=== PATIENT | female | born 1980 | race Two or more races ===

== ENCOUNTER 2018-01-13 22:37 | Inpatient (IN) | payer OTHER ==
[~2018-01-13] VITALS: Ht 165.1 cm; Wt 69.4 kg
--- NOTE | 2018-01-13 22:40 | NUR ---
TO BED 6 A 37 YO FEMALE BIBRA AND PER PATIENT, "TOOK 20 TABS OF TYLENOL 500MG AND 8 TABS OF XANAX 2MG 30MINUTES AGO." SHE THEN SAID, "IM IN TOO MUCH STRESS. AND I WANNA KILL MYSELF." PATIENT IS LETHARGIC AT THIS TIME, AWAKEN BY NAME WITH TACTILE STIMULI, FOLLOWS SOME COMMANDS. PLACE PATIENT ON CARDIAC AND VS MONITORING. MAINTAINED PATENT AIRWAY. SAFETY MEASURES IN PLACE. SUICIDE PRECAUTIONS IN PLACE. WILL CLOSELY MONITOR PATIENT.
[2018-01-13] MEDS ORDERED: IV NS 0.9% 1,000 ML BAG IV ONE (23:00)
--- NOTE | 2018-01-13 23:09 | NUR ---
urine collected via straight catheter, called lab for pickle pumper.
[2018-01-13 23:15] LABS: BASOPHILS # (AUTO) 0.1 /CMM (0.0-0.2); BASOPHILS % (AUTO) 0.9 % (0.0-2.0); EOSINOPHILS % (AUTO) 0.4 % (0.0-6.0); HEMATOCRIT 35 % (33-45); HEMOGLOBIN 11.9 g/dL (11.5-14.8); LYMPHOCYTES # (AUTO) 3.7 /CMM (0.8-4.8); LYMPHOCYTES % (AUTO) 43.1 % (20.0-44.0); MEAN CORPUSCULAR HEMOGLOBIN 32 PG (26.0-33.0); MEAN CORPUSCULAR HGB CONC 34 g/dl (31.0-36.0); MEAN CORPUSCULAR VOLUME 94 fL (82-100); MONOCYTES # (AUTO) 0.7 /CMM (0.1-1.30); MONOCYTES % (AUTO) 8.7 % (2.0-12.0); NEUTROPHILS % (AUTO) 46.9 % (43.0-81.0); PLATELET COUNT (AUTO) 363 /CMM (150-450); RDW COEFFICIENT OF VARIATION 14.9 (11.5-15.0); RED BLOOD CELL COUNT(AUTO) 3.68 MIL/uL (4.0-5.2); WHITE BLOOD COUNT (AUTO) 8.5 K/uL (4.3-11.0)
[2018-01-13 23:26] LABS: CALCIUM, SERUM 8.3 mg/dL (8.5-10.1); CARBON DIOXIDE 22 mmol/L (21-32); CHLORIDE 104 mmol/L (98-107); CREATININE 0.6 mg/dL (0.6-1.3); GLUCOSE 111 mg/dL (74-106); POTASSIUM 3.5 mmol/L (3.5-5.1); SODIUM SERUM 138 mmol/L (136-145); UREA NITROGEN, BLOOD 8 mg/dL (7-18)
[2018-01-13 23:33] LABS: ALANINE AMINOTRANSFERASE 33 U/L (12-78); ALBUMIN 3.6 g/dL (3.4-5.0); ALCOHOL, BLOOD < 3 mg/dL (0-0); ALKALINE PHOSPHATASE 54 U/L (46-116); ASPARTATE AMINOTRANSFERASE 13 U/L (15-37); BILIRUBIN,DIRECT 0.1 mg/dL (0.0-0.2); BILIRUBIN,TOTAL 0.3 mg/dL (0.2-1.0); TOTAL PROTEIN, SERUM 7.5 g/dL (6.4-8.2)
[2018-01-13 23:36] LABS: SALICYLATE 1.7 mg/dL (2.8-20.0)
[2018-01-13 23:38] LABS: APPEARANCE,URINE CLEAR (CLEAR); BILIRUBIN,URINE NEGATIVE (NEGATIVE); BLOOD, URINE NEGATIVE Ery/uL (NEGATIVE); COLOR,URINE YELLOW (YELLOW); KETONES,URINE NEGATIVE (NEGATIVE); LEUKOCYTE ESTERASE ,URINE NEGATIVE (NEGATIVE); NITRITE, URINE NEGATIVE (NEGATIVE); PH,URINE 5.5 (5.0-8.0); PROTEIN,URINE NEGATIVE (NEGATIVE); UGLUCOSE NEGATIVE (NEGATIVE); UROBILINOGEN,URINE 0.2 EU/dL (0.2)
[2018-01-13 23:46] LABS: ACETAMINOPHEN 233 ug/ml (10-30)
[2018-01-13] MEDS ORDERED: ACETYLCYSTEINE IV 6,000 MG/30 ML VIAL IV ONE (23:59)
[2018-01-14] VITALS (37 sets, daily range): BP systolic 93–142; BP diastolic 47–101
[2018-01-14] MEDS ORDERED: ACETYLCYSTEINE IV 6,000 MG/30 ML VIAL IV ONE
--- NOTE | 2018-01-14 01:13 | NUR ---
Report given to Ana Luisa ANG for ICU admission and yeni.
--- NOTE | 2018-01-14 02:10 | NUR ---
ICU/RN- ADMITTED THIS 37 Y/O FEMALE FROM ER PER ACLS PROTOCOL. ROUTINE ICU ADMISSION CARE INITIATED. NURSING FOCUS: SUICIDAL IDEATION R/T DIAGNOSIS OF DRUG OVERDOSE.PT. IS AWAKE, ALERT, VERY UPSET, ASKING TO BE A "DNR" STATUS. WILL NOTIFY MD REGARDING PT. WISH. ANDREW ROGERS HERE TO SEE PT.
--- NOTE | 2018-01-14 02:18 | NUR ---
TRANSFERRED PATIENT TO ICU BED VIA ALS PROTOCOL, NO INCIDENT NOTED.
[2018-01-14] MEDS ORDERED: ACETYLCYSTEINE IV ONE ×2 (02:30→06:30)
[2018-01-14] MEDS ORDERED: ZOLPIDEM TARTRATE 5 MG TABLET PO PRN (02:30)
[2018-01-14] MEDS ORDERED: MAGNESIUM HYDROXIDE 30 ML UDC PO PRN (02:30)
[2018-01-14] MEDS ORDERED: ACETAMINOPHEN 325 MG TABLET PO PRN (02:30)
[2018-01-14] MEDS ORDERED: D5W IV ONE ×2 (02:30→06:30)
[2018-01-14] MEDS ORDERED: Z GUARD REMEDY 2 OZ OINT TP PRN (02:30)
--- NOTE | 2018-01-14 02:30 | NUR ---
ICU/RN- HYGIENE DONE, NOTED PT. TO BE HIDING 38 YELLOW PILLS INSIDE THE BRA. PT. CLAIMED MED. TO BE "XANAX" PILLS. MEDS TAKEN, WILL GIVE TO HOSPITAL PH THIS MORNING.PT. NOTED TO HAVE SLURRED/ GARBLED SPEECH.
[2018-01-14] MEDS ORDERED: ACETYLCYSTEINE 20% SOLN 800 MG/4 ML VIAL ONE (03:01)
--- NOTE | 2018-01-14 03:08 | NUR ---
ICU/RN- MUCOMYST MAINTENANCE DOSE 50MG/KG OVER 4HRS. STARTED. WILL MONITOR PT. CLOSELY FOR SAFETY PER PROTOCOL.
--- NOTE | 2018-01-14 03:20 | NUR ---
ICU/RN-SPOKE TO SHAR FROM POISON CONTROL, UPDATE GIVEN TO SAME REGARDING PT. STATUS AND TYLENOL LEVEL. RECOMMENDS ANOTHER TYLENOL LEVEL, WILL DRAW LEVEL NOW PER PROTOCOL.
--- NOTE | 2018-01-14 03:30 | NUR ---
ICU/RN- LAB. TECH HERE TO DRAW BLOOD FOR TYLENOL LEVEL.
[2018-01-14 04:47] LABS: BASOPHILS % (AUTO) 0.4 % (0.0-2.0); EOSINOPHILS # (AUTO) 0.1 /CMM (0.0-0.7); EOSINOPHILS % (AUTO) 0.7 % (0.0-6.0); HEMATOCRIT 34 % (33-45); HEMOGLOBIN 11.6 g/dL (11.5-14.8); LYMPHOCYTES # (AUTO) 3.9 /CMM (0.8-4.8); LYMPHOCYTES % (AUTO) 50.7 % (20.0-44.0); MEAN CORPUSCULAR HEMOGLOBIN 33 PG (26.0-33.0); MEAN CORPUSCULAR HGB CONC 34 g/dl (31.0-36.0); MEAN CORPUSCULAR VOLUME 96 fL (82-100); MONOCYTES # (AUTO) 0.6 /CMM (0.1-1.30); MONOCYTES % (AUTO) 8.5 % (2.0-12.0); NEUTROPHILS % (AUTO) 39.7 % (43.0-81.0); PLATELET COUNT (AUTO) 372 /CMM (150-450); RDW COEFFICIENT OF VARIATION 15.2 (11.5-15.0); RED BLOOD CELL COUNT(AUTO) 3.56 MIL/uL (4.0-5.2); WHITE BLOOD COUNT (AUTO) 7.6 K/uL (4.3-11.0)
[2018-01-14 05:04] LABS: CALCIUM, SERUM 8.3 mg/dL (8.5-10.1); CREATININE 0.7 mg/dL (0.6-1.3); MAGNESIUM 1.7 mg/dL (1.8-2.4); PHOSPHORUS 3.8 mg/dL (2.5-4.9); POTASSIUM 3.4 mmol/L (3.5-5.1)
[2018-01-14] MEDS: HYDROCODONE/APAP 5/325MG 1 EACH TABLET PO PRN ×2 (05:11→13:07)
--- NOTE | 2018-01-14 05:14 | NUR ---
ICU/RN- AWAKE, ALERT, C/O RIGHT UPPER/LOWER BACK PAIN, ACHY, CHRONIC, NORCO I TAB PO GIVEN. WILL REASSESS FOR PRN EFFECTIVENESS.HAD I CUP PUDDING, CRACKERS AND FAT FREE MILK.MONIKA. WELL.
--- NOTE | 2018-01-14 06:18 | NUR ---
ICU/RN- ASLEEP, DENIES DISCOMFORT. CLOSE MONITORING DONE.
--- NOTE | 2018-01-14 06:30 | NUR ---
ICU/RN- NAUSEATED, ZOFRAN 4 MG SIVP GIVEN. WILL REASSESS FOR PRN EFFECTIVENESS.
[2018-01-14] MEDS: ONDANSETRON HCL/PF 4 MG/2 ML VIAL IVP PRN (06:31)
--- NOTE | 2018-01-14 07:00 | NUR ---
RN NOTES RECEIVED PT ON BED, A/Ox4, RESPIRATION EVEN AND UNLABORED, ON RA , NO SOB NOTED, SITTER AT THE BEDSIDE FOR SAFETY PRECAUTION , PT IS ON SUICIDAL PRECAUTION ,ON TELE HR IN 80'S, R HAND IV G 18 SITE CDI, SR UP x3, CALL LIGHT WITHIN EASY REACH, BED LOCKED AND IN LOWEST POSITION , CONTINUE TO MONITOR PT CLSOELY
[2018-01-14] MEDS ORDERED: ALPR2TAB7 PO (09:49)
[2018-01-14] MEDS ORDERED: QUET25TA PO (09:49)
[2018-01-14] MEDS ORDERED: ZOLP5TAB8 PO (09:49)
[2018-01-14] MEDS ORDERED: LURA40TA PO (09:49)
[2018-01-14] MEDS ORDERED: CARI350T PO (09:49)
[2018-01-14] MEDS ORDERED: QUET400T PO (09:49)
--- NOTE | 2018-01-14 10:00 | NUR ---
RN NOTES CALL RECEIVED FROM POISON CONTROL . LAST TYLENOL LEVEL =101, PT DOES NOT NEED THE LAST BAG OF MUCOMYST IV PER POISON CONTROL RECOMMENDATION . CARLIN TURK CYTOLOGY MANAGER NOTIFIED. ORDER RECEIVED TO CONTINUE MUCOMYST IV PER PROTOCOL .
[2018-01-14] MEDS ORDERED: POTASSIUM CHLORIDE 20 MEQ TAB.PRT.SR PO SCH (12:30)
[2018-01-14] MEDS: Magnesium 1GM/D5W 100ML PREMIX 100 ML IV SCH ×2 (13:07→14:23)
[2018-01-14] MEDS ORDERED: QUETIAPINE FUMARATE 25 MG TABLET PO PRN (14:00)
--- NOTE | 2018-01-14 14:00 | NUR ---
RN NOTES DR CABRERA AT THE BEDSIDE SEEING THE PT . RESPIRATION EVEN AND UNLABORED, SITTER AT THE BEDSIDE , CONTINUE TO MONITOR .
[2018-01-14] MEDS: LIDOCAINE 5% (PATCH) 1 EA PATCH TP SCH (14:23)
[2018-01-14] MEDS: ALPRAZOLAM 1 MG TABLET PO SCH (16:18)
[2018-01-14] MEDS: GABAPENTIN 100 MG CAPSULE PO SCH (16:18)
--- NOTE | 2018-01-14 16:30 | NUR ---
RN NOTES PT STATED WANTS MORPHINE FOR BACK PAIN , CARLIN TURK COMMUNICATIONS SPECIALIST NOTIFIED , PT REMOVED HER LIDODERM PATCH AND STATED IT DOES NOT HELP HER BACK PAIN , NO NEW ORDER GIVEN . CONTINUE TO MONITOR.
--- NOTE | 2018-01-14 18:30 | NUR ---
RN NOTES PT EATING DINNER AND WATCHING TV , NO DISTRESS NOTED, SITTER AT THE BEDSIDE, SR UP x3, CALL LIGHT WITHIN EASY REACH, BED LOCKED AND IN LOWEST POSITION , WILL ENDORSE TO VETERINARY VIROLOGIST NURSE FOR NANCY
--- NOTE | 2018-01-14 19:30 | NUR ---
RECEIVED REPORT, ASSUMED PT CARE, INITIAL ASSESSMENT COMPLETE. PT STATING PAIN LEVEL IS INCREASED AND AND UNAFFECTED BY PO MEDICATION. ADVISED PT I WILL CONTACT PROVIDER FOR ADDITION PAIN MEDICATION
[2018-01-14] MEDS: MORPHINE SULFATE INJ 4 MG/ML DISP.SYRIN IV PRN (21:25)
[2018-01-14] MEDS ORDERED: QUETIAPINE FUMARATE 25 MG TABLET PO SCH (22:00)
--- NOTE | 2018-01-14 22:00 | NUR ---
PM MEDS GIVEN. PT GIVEN SNACK BEFORE BEDTIME. ASSTED TO BR. SITTER REMAINS AT BEDSIDE.
--- NOTE | 2018-01-14 23:05 | NUR ---
PT APPEARS TO BE RESTING W/NO APPARTENT DISTRESS AT THIS TIME. SITTER AT BEDSIDE.
[2018-01-15] VITALS (23 sets, daily range): BP systolic 46–130; BP diastolic 23–97
--- NOTE | 2018-01-15 02:00 | NUR ---
NO CHANGE IN PT STATUS. RESTED COMFORTABLY THROUGHOUT THE NIGHT. VSS REMAIN STABLE AND WNL. SITTER REMAINS AT BEDSIDE.
[2018-01-15 04:56] LABS: CALCIUM, SERUM 8.9 mg/dL (8.5-10.1); CREATININE 0.6 mg/dL (0.6-1.3)
[2018-01-15 05:04] LABS: CHOLESTEROL 190 mg/dL (<200); HDL CHOLESTEROL 77 mg/dL (40-60); LDL 104 mg/dL (0-99); TRIGLYCERIDES 61 mg/dL (30-150)
--- NOTE | 2018-01-15 05:44 | NUR ---
PT RESTING COMFORTABLY WITH NO COMPLAINTS. AM LABS COMPLETE. NO CHANGES IN PT CONDITION. SITTER REMAINS AT BESIDE.
--- NOTE | 2018-01-15 07:45 | NUR ---
RN NOTES RECEIVED PT IN BED, ASLEEP AT THIS TIME. NO ACUTE DISTRESS NOTED. SITTER AT BEDSIDE. ON RA MONIKA WELL. RESTING SBP IS AT 80'S. SR ON THERMAL CUTTING TRACER MACHINE OPERATOR. WILL CONT TO MONITOR
[2018-01-15] MEDS: ALPRAZOLAM 1 MG TABLET PO SCH ×3 (09:34→17:00)
[2018-01-15] MEDS: GABAPENTIN 100 MG CAPSULE PO SCH ×3 (09:34→17:00)
[2018-01-15] MEDS: MORPHINE SULFATE INJ 4 MG/ML DISP.SYRIN IV PRN ×2 (09:34→13:45)
[2018-01-15 10:17] LABS: HEMOGLOBIN 11.7 g/dL (11.5-14.8); RED BLOOD CELL COUNT(AUTO) 3.63 MIL/uL (4.0-5.2); WHITE BLOOD COUNT (AUTO) 5.7 K/uL (4.3-11.0)
[2018-01-15 10:18] LABS: HEMATOCRIT 35 % (33-45); MEAN CORPUSCULAR HEMOGLOBIN 32 PG (26.0-33.0); MEAN CORPUSCULAR HGB CONC 33 g/dl (31.0-36.0); MEAN CORPUSCULAR VOLUME 96 fL (82-100); NEUTROPHILS % (AUTO) 40.1 % (43.0-81.0); PLATELET COUNT (AUTO) 365 /CMM (150-450); RDW COEFFICIENT OF VARIATION 14.9 (11.5-15.0)
[2018-01-15 10:19] LABS: EOSINOPHILS % (AUTO) 1.7 % (0.0-6.0); LYMPHOCYTES # (AUTO) 2.7 /CMM (0.8-4.8); MONOCYTES # (AUTO) 0.5 /CMM (0.1-1.30); MONOCYTES % (AUTO) 9.2 % (2.0-12.0); NEUTROPHILS # (AUTO) 2.3 /CMM (1.8-8.9)
[2018-01-15 10:20] LABS: BASOPHILS # (AUTO) 0.1 /CMM (0.0-0.2); EOSINOPHILS # (AUTO) 0.1 /CMM (0.0-0.7)
--- NOTE | 2018-01-15 10:34 | NUR ---
TRAV contacted crisis team clinician Dionicio Hernadez and left him a voicemail message requesting him to come evaluate pt. due to pt. being suicidal. Addendum: 01/15/18 at 1130 by LISA RAVI TRAV received a call back from Dionicio Hernadez tight rope walker who informed TRAV he will come to evaluate pt. shortly. TRAV contacted ICU and informed ASHIA Sharp to inform pt's ASHIA Gleason that Art will be coming to see pt.
[2018-01-15] MEDS: LIDOCAINE 5% (PATCH) 1 EA PATCH TP SCH (13:10)
[2018-01-15] MEDS: ONDANSETRON HCL/PF 4 MG/2 ML VIAL IVP PRN ×2 (13:39→18:42)
[2018-01-15] MEDS ORDERED: ALPR1TAB7 PO (14:09)
[2018-01-15] MEDS ORDERED: GABA100C PO (14:09)
[2018-01-15] MEDS ORDERED: CARI350T PO (14:09)
[2018-01-15] MEDS ORDERED: QUET25TA PO ×2 (14:09)
[2018-01-15] MEDS ORDERED: LIDO30AD10 TP (14:09)
[2018-01-15] MEDS ORDERED: HYDR-3972 PO (14:09)
--- NOTE | 2018-01-15 14:30 | NUR ---
RN NOTES PET CRISIS TEAM WAS HERE TO EVALUATE PATIENT, PER PET TEAM PT IS ON HOLD NOW, AND CAN BE TRANSFERRED TO [facility]. PT WAS INFORMED. AGREED AND VERBALIZED UNDERSTANDING. CM WAS NOTIFIED.
--- NOTE | 2018-01-15 18:48 | NUR ---
RN NOTES [facility], REPORT GIVEN TO YESSENIA ANG. ESTIMATED SLATE CUTTER TIME IS [id number]. DISCHARGE PAPERWORK SIGNED BY PATIENT. ALL HOME MEDS WILL BE GOING WITH THE PATIENT.
--- NOTE | 2018-01-15 20:00 | NUR ---
Received patient resting in bed awake alert and oriented x 4.Moves all extremities.VS stable.SR/SB 58.Respiration even and unlabored.Denies any discomfort at present.1:1 Sitter at bedside.Awaiting ambulance for transfer to [facility].Saline lock removed needle intact.
--- NOTE | 2018-01-15 20:37 | NUR ---
Patient awake and oriented x 4.VS stable.[facility] here.Report given to Titi Ramirez and Sylvia Haywood.Discharge papers,patient medications and belongings given.Patient left in stable condition via gurney to [facility].Accepting RN,Angelito.
[2018-01-16] MEDS ORDERED: ALPRAZOLAM 1 MG TABLET PO SCH (09:00)
[2018-01-16] MEDS ORDERED: GABAPENTIN 100 MG CAPSULE PO SCH (09:00)
== END 2018-01-15 20:34 | disposition short-term general hospital (02) | DRG 918 ==
LOC: ER 22:46 → ICU 01-14 01:15
PROVIDERS: ADMIT Nurse Practitioner Acute Care; ATTEND Nurse Practitioner Acute Care
DX: T39.1X2A Poisoning by 4-Aminophenol derivatives, intentional self-harm, initial encounter (principal); E87.6 Hypokalemia; F32.9 Major depressive disorder, single episode, unspecified; T42.4X2A Poisoning by benzodiazepines, intentional self-harm, initial encounter; F41.9 Anxiety disorder, unspecified; Z91.5 Personal history of self-harm; Y92.009 Unspecified place in unspecified non-institutional (private) residence as the place of occurrence of the external cause; G89.29 Other chronic pain; F19.10 Other psychoactive substance abuse, uncomplicated
CPT/HCPCS: 36415; 80048-TC; 80061-TC; 80076-TC; 80305; 81000-TC; 82010-TC; 83735-TC; 84100-TC; 84703-TC; 85025-TC; 87081-TC; A4606; G0480; J0132; J2270; J2405; J3475; J7030; J7050; J7060; J7070; Z7610

== ENCOUNTER 2022-08-23 13:25 | Emergency (ER) | payer OTHER ==
[~2022-08-23] VITALS: Ht 172.7 cm; Wt 62.1 kg
[~2022-08-23 13:25] MED LIST: ALPR1TAB7 PO; CARI350T PO; GABA100C PO; HYDR-3972 PO; LIDO30AD10 TP; QUET25TA PO; ZOLP5TAB8 PO
--- NOTE | 2022-08-23 13:38 | NUR ---
TO ER 17 AWAITING MD GOMEZ
[2022-08-23 14:00] LABS: BASOPHILS # (AUTO) 0.1 K/uL (0.0-0.2); BASOPHILS % (AUTO) 0.7 % (0.0-2.0); EOSINOPHILS % (AUTO) 1.1 % (0.0-6.0); HEMATOCRIT 38 % (33-45); HEMOGLOBIN 12.4 g/dL (11.5-14.8); LYMPHOCYTES # (AUTO) 2.3 K/uL (0.8-4.8); LYMPHOCYTES % (AUTO) 31.3 % (20.0-44.0); MEAN CORPUSCULAR HGB CONC 33 g/dl (31.0-36.0); MEAN CORPUSCULAR VOLUME 96 fL (82-100); MONOCYTES # (AUTO) 0.6 K/uL (0.1-1.30); NEUTROPHILS # (AUTO) 4.2 K/uL (1.8-8.9); NEUTROPHILS % (AUTO) 57.9 % (43.0-81.0); PLATELET COUNT (AUTO) 386 K/uL (150-450); WHITE BLOOD COUNT (AUTO) 7.2 K/uL (4.3-11.0)
[2022-08-23 14:02] LABS: BILIRUBIN,URINE NEGATIVE (NEGATIVE); COLOR,URINE ORANGE (YELLOW); LEUKOCYTE ESTERASE ,URINE NEGATIVE (NEGATIVE); NITRITE, URINE NEGATIVE (NEGATIVE); PH,URINE 6.5 (5.0-8.0); PROTEIN,URINE NEGATIVE (NEGATIVE); UGLUCOSE NEGATIVE (NEGATIVE)
[2022-08-23 14:10] LABS: CALCIUM, SERUM 9.4 mg/dL (8.5-10.1); CARBON DIOXIDE 30 mmol/L (21-32); CHLORIDE 99 mmol/L (98-107); CREATININE 0.7 mg/dL (0.6-1.3); GLUCOSE 124 mg/dL (74-106); POTASSIUM 4.2 mmol/L (3.5-5.1); SODIUM SERUM 135 mmol/L (136-145); UREA NITROGEN, BLOOD 6 mg/dL (7-18)
[2022-08-23 14:15] LABS: ALANINE AMINOTRANSFERASE 19 U/L (12-78); ALBUMIN 3.9 g/dL (3.4-5.0); ALCOHOL, BLOOD < 3 mg/dL (0-0); ALKALINE PHOSPHATASE 59 U/L (46-116); ASPARTATE AMINOTRANSFERASE 16 U/L (15-37); BILIRUBIN,DIRECT 0.1 mg/dL (0.0-0.2); BILIRUBIN,TOTAL 0.4 mg/dL (0.2-1.0); TOTAL PROTEIN, SERUM 7.7 g/dL (6.4-8.2)
[2022-08-23 14:20] LABS: BACTERIA,URINE Few /HPF (None Seen); WBC,URINE 0-2 /HPF (0-3)
[2022-08-23 14:31] LABS: ACETAMINOPHEN 0 ug/ml (10-30)
--- NOTE | 2022-08-23 15:12 | NUR ---
COVID SWAB DONE AND SENT TO LAB
--- NOTE | 2022-08-23 16:14 | NUR ---
COVID SWAB DONE AND SENT TO LAB
--- NOTE | 2022-08-23 16:57 | NUR ---
TRANSPORTATION WILL BE HERE AT 1730 UNDER THE CARE OF DR CLEMONS
[2022-08-23 17:02] VITALS: BP 122/76
--- NOTE | 2022-08-23 17:54 | NUR ---
TRANSPORTATION ARRIVED, PT BEING TRANSFERRED TO [facility] IN STABLE CONDITION.
== END 2022-08-23 17:57 ==
LOC: ER 13:36
DX: F32.A Depression, unspecified (principal); F41.9 Anxiety disorder, unspecified; Z20.822 Contact with and (suspected) exposure to COVID-19
CPT/HCPCS: 99284; 85025; 80048; 80076; 84703; 81001; 36415; 87426; 80143; 80320; 80307; C9803; G0480

== ENCOUNTER 2022-09-01 19:29 | Emergency (ER) | payer OTHER ==
--- NOTE | 2022-09-01 20:15 | NUR ---
CALLED TO TRIAGE NO ANSWER
--- NOTE | 2022-09-01 20:40 | NUR ---
PATIENT NOT IN WAITING ROOM
== END 2022-09-01 20:41 | disposition left against medical advice (07) ==
LOC: ER 19:31
DX: Z53.21 Procedure and treatment not carried out due to patient leaving prior to being seen by health care provider (principal)

== ENCOUNTER 2022-09-01 23:12 | Emergency (ER) | payer OTHER ==
[~2022-09-01] VITALS: Ht 170.2 cm; Wt 65.8 kg
--- NOTE | 2022-09-01 23:30 | NUR ---
COVID SWAB COLLECTED
[2022-09-01 23:51] LABS: BILIRUBIN,URINE NEGATIVE (NEGATIVE); COLOR,URINE YELLOW (YELLOW); LEUKOCYTE ESTERASE ,URINE NEGATIVE (NEGATIVE); NITRITE, URINE NEGATIVE (NEGATIVE); PH,URINE 6.5 (5.0-8.0); PROTEIN,URINE NEGATIVE (NEGATIVE); UGLUCOSE NEGATIVE (NEGATIVE); UROBILINOGEN,URINE 0.2 EU/dL (0.2)
[2022-09-01 23:53] LABS: BASOPHILS % (AUTO) 0.5 % (0.0-2.0); EOSINOPHILS % (AUTO) 0.8 % (0.0-6.0); HEMATOCRIT 40 % (33-45); HEMOGLOBIN 13.1 g/dL (11.5-14.8); LYMPHOCYTES # (AUTO) 2.6 K/uL (0.8-4.8); LYMPHOCYTES % (AUTO) 36.3 % (20.0-44.0); MEAN CORPUSCULAR HGB CONC 33 g/dl (31.0-36.0); MEAN CORPUSCULAR VOLUME 97 fL (82-100); MONOCYTES # (AUTO) 0.6 K/uL (0.1-1.30); MONOCYTES % (AUTO) 8.9 % (2.0-12.0); NEUTROPHILS # (AUTO) 3.9 K/uL (1.8-8.9); NEUTROPHILS % (AUTO) 53.5 % (43.0-81.0); PLATELET COUNT (AUTO) 424 K/uL (150-450); RED BLOOD CELL COUNT(AUTO) 4.13 MIL/uL (4.0-5.2); WHITE BLOOD COUNT (AUTO) 7.2 K/uL (4.3-11.0)
--- NOTE | 2022-09-02 | NUR ---
PATIENT BIBSELF C/O DEPRESSED WANTS VOL PSYCH ADMIT. PATIENT IS A/O X 4, RR EVEN AND UNLABORED NO SOB NOTED, VSS. PATIENT TO ER BED 14. WANDED BY SECURITY BELONGINGS TAKEN PATIENT IN GOWN, SITTER AT BEDSIDE.
[2022-09-02 00:20] LABS: ALANINE AMINOTRANSFERASE 17 U/L (12-78); ALBUMIN 4.1 g/dL (3.4-5.0); ALCOHOL, BLOOD < 3 mg/dL (0-0); ALKALINE PHOSPHATASE 67 U/L (46-116); ASPARTATE AMINOTRANSFERASE 14 U/L (15-37); BILIRUBIN,DIRECT 0.1 mg/dL (0.0-0.2); BILIRUBIN,TOTAL 0.2 mg/dL (0.2-1.0); CALCIUM, SERUM 9.3 mg/dL (8.5-10.1); CARBON DIOXIDE 29 mmol/L (21-32); CHLORIDE 103 mmol/L (98-107); CREATININE 0.7 mg/dL (0.6-1.3); GLUCOSE 103 mg/dL (74-106); POTASSIUM 4.2 mmol/L (3.5-5.1); SODIUM SERUM 136 mmol/L (136-145); TOTAL PROTEIN, SERUM 8.2 g/dL (6.4-8.2); UREA NITROGEN, BLOOD 6 mg/dL (7-18)
[2022-09-02 00:21] LABS: ACETAMINOPHEN 0 ug/ml (10-30)
--- NOTE | 2022-09-02 00:44 | NUR ---
CLINICALS FAXED TO [facility]
--- NOTE | 2022-09-02 02:18 | NUR ---
PT ACCEPTED TO [facility] DR. CLEMONS [phone] CALLBACK NUMBER AFTER TRANSPORT IS SETUP [phone]
--- NOTE | 2022-09-02 02:22 | NUR ---
[facility] CALLED ETA 30 MINUTES OR LESS.
--- NOTE | 2022-09-02 02:38 | NUR ---
REPORT GIVEN TO TODD
--- NOTE | 2022-09-02 02:58 | NUR ---
[facility] 295 AT BEDSIDE FOR PT TRANSPORT TO [facility]. PT IS IN STABLE CONDITION FOR TRANSPORT. PT IS AMBULATORY ON [facility].
[2022-09-02 03:37] VITALS: BP 125/70
== END 2022-09-02 03:01 ==
LOC: ER 23:15
DX: F32.A Depression, unspecified (principal); F41.9 Anxiety disorder, unspecified; Z20.822 Contact with and (suspected) exposure to COVID-19; Z79.899 Other long term (current) drug therapy
CPT/HCPCS: 99284; 85025; 80048; 80076; 81003; 36415; 87426; 80143; 80320; 80307; 84703; C9803; G0480

== ENCOUNTER 2022-09-10 20:05 | Emergency (ER) | payer OTHER ==
[~2022-09-10] VITALS: Ht 170.2 cm; Wt 62.1 kg
--- NOTE | 2022-09-10 20:28 | NUR ---
JESSICA C/O DEPRESSED -SI/-HI. REQUESTING TO BE TRANSFERED TO [facility]. A/OX4. TOLERATING R/A WELL WITH NO RESP DISTRESS. PT CHANGED IN GOWN, BELONGINGS COLLECTED AND PLACED IN LOCKER. SAFETY MEASURES IN PLACE. SITTER AT PT'S BEDSIDE
--- NOTE | 2022-09-10 20:29 | NUR ---
URINE COLLECTED AND SENT TO LAB
--- NOTE | 2022-09-10 20:41 | NUR ---
COVID ANTIGEN SWAB COLLECTED AND SENT TO LAB
--- NOTE | 2022-09-10 20:43 | NUR ---
Note lili in EDM - 09/10/22 at 2046 by STEPHANIA JESSICA C/O DEPRESSED -SI/-HI. REQUESTING TO BE TRANSFERED TO [facility]. A/OX4. TOLERATING R/A WELL WITH NO RESP DISTRESS. PT CHANGED IN GOWN, BELONGINGS COLLECTED AND PLACED IN LOCKER. SAFETY MEASURES IN PLACE. SITTER AT PT'S BEDSIDE
[2022-09-10 21:07] LABS: BILIRUBIN,URINE NEGATIVE (NEGATIVE); COLOR,URINE YELLOW (YELLOW); LEUKOCYTE ESTERASE ,URINE NEGATIVE (NEGATIVE); NITRITE, URINE NEGATIVE (NEGATIVE); PROTEIN,URINE NEGATIVE (NEGATIVE); UGLUCOSE NEGATIVE (NEGATIVE); UROBILINOGEN,URINE 0.2 EU/dL (0.2)
[2022-09-10 21:24] LABS: BASOPHILS # (AUTO) 0.1 K/uL (0.0-0.2); EOSINOPHILS % (AUTO) 1.2 % (0.0-6.0); HEMATOCRIT 36 % (33-45); HEMOGLOBIN 12.1 g/dL (11.5-14.8); LYMPHOCYTES # (AUTO) 2.6 K/uL (0.8-4.8); LYMPHOCYTES % (AUTO) 34.5 % (20.0-44.0); MEAN CORPUSCULAR HGB CONC 33 g/dl (31.0-36.0); MEAN CORPUSCULAR VOLUME 95 fL (82-100); MONOCYTES # (AUTO) 0.9 K/uL (0.1-1.30); MONOCYTES % (AUTO) 11.7 % (2.0-12.0); NEUTROPHILS # (AUTO) 3.9 K/uL (1.8-8.9); NEUTROPHILS % (AUTO) 51.6 % (43.0-81.0); PLATELET COUNT (AUTO) 276 K/uL (150-450); WHITE BLOOD COUNT (AUTO) 7.6 K/uL (4.3-11.0)
[2022-09-10 21:30] LABS: CALCIUM, SERUM 8.7 mg/dL (8.5-10.1); CARBON DIOXIDE 25 mmol/L (21-32); CHLORIDE 104 mmol/L (98-107); CREATININE 0.8 mg/dL (0.6-1.3); GLUCOSE 94 mg/dL (74-106); POTASSIUM 3.6 mmol/L (3.5-5.1); SODIUM SERUM 137 mmol/L (136-145); UREA NITROGEN, BLOOD 7 mg/dL (7-18)
[2022-09-10 21:36] LABS: ALANINE AMINOTRANSFERASE 20 U/L (12-78); ALBUMIN 3.9 g/dL (3.4-5.0); ALCOHOL, BLOOD < 3 mg/dL (0-0); ALKALINE PHOSPHATASE 59 U/L (46-116); ASPARTATE AMINOTRANSFERASE 25 U/L (15-37); BILIRUBIN,DIRECT 0.1 mg/dL (0.0-0.2); BILIRUBIN,TOTAL 0.4 mg/dL (0.2-1.0); TOTAL PROTEIN, SERUM 7.3 g/dL (6.4-8.2)
[2022-09-10 21:37] LABS: ACETAMINOPHEN 0 ug/ml (10-30)
--- NOTE | 2022-09-10 22:10 | NUR ---
PER LAB, ANOTHER 15 MIN FOR COVID RESULTS
--- NOTE | 2022-09-10 22:27 | NUR ---
FAXED FACE SHEET AND CLINICALS TO [facility]
--- NOTE | 2022-09-11 01:10 | NUR ---
TAMIKO HAGER AT [facility] INTAKE PT GOT ACCEPTED AT [facility] BY DR FLORES. # FOR REPORT: [phone], UNIT ONE. [facility] ETA: 60-90 MIN
--- NOTE | 2022-09-11 02:06 | NUR ---
[facility] AT BED SIDE TO TIP STITCHER THE PT
--- NOTE | 2022-09-11 02:22 | NUR ---
PT PICKED UP BY [facility] FOR [facility]
[2022-09-11 02:24] VITALS: BP 127/83
== END 2022-09-11 02:25 ==
LOC: ER 20:06
DX: F32.A Depression, unspecified (principal); F41.9 Anxiety disorder, unspecified; Z79.899 Other long term (current) drug therapy; Z20.822 Contact with and (suspected) exposure to COVID-19
CPT/HCPCS: 99284; 85025; 80048; 80076; 84703; 81003; 36415; 87426; 80143; 80320; 80307; C9803; G0480

== ENCOUNTER 2022-10-02 20:04 | Emergency (ER) | payer OTHER ==
[~2022-10-02] VITALS: Ht 170.2 cm; Wt 65.8 kg
--- NOTE | 2022-10-02 20:30 | NUR ---
BIBSELF C/O WANTS VOL RENASCH ADMIT -SI/-HI FEELS DEPRESSED. PT A/OX4. TOLERATING R/A WELL WITH NO RESP DISRESS. PT CHANGED IN GOWN, BELONGINGS COLLECTED AND SENT TO LOCKER, WANDED BY SECURITY. SUICIDAL SAFETY MEASURES IN PLACE.
--- NOTE | 2022-10-02 20:33 | NUR ---
COVID SWAB COLLECTED
[2022-10-02 21:42] LABS: BASOPHILS % (AUTO) 0.3 % (0.0-2.0); EOSINOPHILS % (AUTO) 0.5 % (0.0-6.0); HEMATOCRIT 40 % (33-45); HEMOGLOBIN 13.2 g/dL (11.5-14.8); LYMPHOCYTES # (AUTO) 2.7 K/uL (0.8-4.8); LYMPHOCYTES % (AUTO) 32.3 % (20.0-44.0); MEAN CORPUSCULAR HGB CONC 33 g/dl (31.0-36.0); MEAN CORPUSCULAR VOLUME 97 fL (82-100); MONOCYTES # (AUTO) 0.7 K/uL (0.1-1.30); MONOCYTES % (AUTO) 8.9 % (2.0-12.0); NEUTROPHILS # (AUTO) 4.8 K/uL (1.8-8.9); PLATELET COUNT (AUTO) 314 K/uL (150-450); RED BLOOD CELL COUNT(AUTO) 4.12 MIL/uL (4.0-5.2); WHITE BLOOD COUNT (AUTO) 8.3 K/uL (4.3-11.0)
[2022-10-02 21:58] LABS: ALANINE AMINOTRANSFERASE 17 U/L (12-78); ALBUMIN 4.3 g/dL (3.4-5.0); ALCOHOL, BLOOD < 3 mg/dL (0-0); ALKALINE PHOSPHATASE 68 U/L (46-116); ASPARTATE AMINOTRANSFERASE 16 U/L (15-37); BILIRUBIN,DIRECT 0.1 mg/dL (0.0-0.2); BILIRUBIN,TOTAL 0.5 mg/dL (0.2-1.0); CARBON DIOXIDE 25 mmol/L (21-32); CHLORIDE 98 mmol/L (98-107); CREATININE 0.8 mg/dL (0.6-1.3); GLUCOSE 101 mg/dL (74-106); POTASSIUM 3.9 mmol/L (3.5-5.1); SODIUM SERUM 130 mmol/L (136-145); TOTAL PROTEIN, SERUM 8.3 g/dL (6.4-8.2); UREA NITROGEN, BLOOD 8 mg/dL (7-18)
[2022-10-02 22:01] LABS: ACETAMINOPHEN < 10 ug/ml (10-30)
[2022-10-02 22:31] LABS: BILIRUBIN,URINE 1+ (NEGATIVE); COLOR,URINE DARK YELLOW (YELLOW); LEUKOCYTE ESTERASE ,URINE NEGATIVE (NEGATIVE); NITRITE, URINE NEGATIVE (NEGATIVE); PROTEIN,URINE TRACE mg/dl (NEGATIVE); UGLUCOSE NEGATIVE (NEGATIVE); UROBILINOGEN,URINE 0.2 EU/dL (0.2)
[2022-10-02 22:36] LABS: BACTERIA,URINE Few /HPF (None Seen); SQUAMOUS EPITHELIAL CELL,UR Moderate /HPF (None Seen); WBC,URINE 0-2 /HPF (0-3)
--- NOTE | 2022-10-02 22:54 | NUR ---
clinicals faxed to [facility]
--- NOTE | 2022-10-03 01:27 | NUR ---
ACCEPTED TO [facility] UNDER DR DIALLO [phone] - ASK FOR UNIT 2
--- NOTE | 2022-10-03 01:28 | NUR ---
[facility] CALLED FOR BLS GOING TO [facility] PER ANA MARÍA ETA - 15 MIN
--- NOTE | 2022-10-03 01:53 | NUR ---
REPORT GIVEN TO JUAN
--- NOTE | 2022-10-03 02:00 | NUR ---
BEDSIDE REPORT GIVEN TO [facility]
--- NOTE | 2022-10-03 02:56 | NUR ---
PT TRANSFERRED TO [facility]IA [facility]. ALL BELONGINGS WITH PT.
[2022-10-03 04:36] VITALS: BP 122/56
== END 2022-10-03 03:00 ==
LOC: ER 20:05
DX: F32.A Depression, unspecified (principal); Z20.822 Contact with and (suspected) exposure to COVID-19
CPT/HCPCS: 99283; 85025; 80048; 80076; 84703; 81001; 36415; 87426; 80143; 80320; 80307; C9803; G0480

== ENCOUNTER 2022-10-14 17:22 | Emergency (ER) | payer OTHER ==
[~2022-10-14] VITALS: Ht 170.2 cm; Wt 59.0 kg
--- NOTE | 2022-10-14 17:38 | NUR ---
TO ER 13 FOR MD GOMEZ
[2022-10-14 18:13] LABS: BASOPHILS % (AUTO) 0.6 % (0.0-2.0); EOSINOPHILS % (AUTO) 0.7 % (0.0-6.0); HEMATOCRIT 39 % (33-45); LYMPHOCYTES # (AUTO) 1.9 K/uL (0.8-4.8); LYMPHOCYTES % (AUTO) 48.1 % (20.0-44.0); MEAN CORPUSCULAR HGB CONC 34 g/dl (31.0-36.0); MEAN CORPUSCULAR VOLUME 96 fL (82-100); MONOCYTES # (AUTO) 0.5 K/uL (0.1-1.30); MONOCYTES % (AUTO) 12.2 % (2.0-12.0); NEUTROPHILS # (AUTO) 1.5 K/uL (1.8-8.9); NEUTROPHILS % (AUTO) 38.4 % (43.0-81.0); PLATELET COUNT (AUTO) 255 K/uL (150-450); RED BLOOD CELL COUNT(AUTO) 4.03 MIL/uL (4.0-5.2)
[2022-10-14 18:43] LABS: CALCIUM, SERUM 8.9 mg/dL (8.5-10.1); CARBON DIOXIDE 27 mmol/L (21-32); CHLORIDE 100 mmol/L (98-107); CREATININE 0.7 mg/dL (0.6-1.3); GLUCOSE 88 mg/dL (74-106); POTASSIUM 3.7 mmol/L (3.5-5.1); SODIUM SERUM 134 mmol/L (136-145); UREA NITROGEN, BLOOD 8 mg/dL (7-18)
[2022-10-14 18:49] LABS: ALANINE AMINOTRANSFERASE 16 U/L (12-78); ALBUMIN 3.8 g/dL (3.4-5.0); ALCOHOL, BLOOD < 3 mg/dL (0-0); ALKALINE PHOSPHATASE 71 U/L (46-116); ASPARTATE AMINOTRANSFERASE 16 U/L (15-37); BILIRUBIN,DIRECT 0.1 mg/dL (0.0-0.2); BILIRUBIN,TOTAL 0.3 mg/dL (0.2-1.0); TOTAL PROTEIN, SERUM 7.6 g/dL (6.4-8.2)
[2022-10-14 18:51] LABS: ACETAMINOPHEN 0 ug/ml (10-30)
[2022-10-14 19:11] LABS: BILIRUBIN,URINE NEGATIVE (NEGATIVE); COLOR,URINE YELLOW (YELLOW); LEUKOCYTE ESTERASE ,URINE NEGATIVE (NEGATIVE); NITRITE, URINE NEGATIVE (NEGATIVE); PROTEIN,URINE NEGATIVE (NEGATIVE); UGLUCOSE NEGATIVE (NEGATIVE); UROBILINOGEN,URINE 0.2 EU/dL (0.2)
--- NOTE | 2022-10-14 23:26 | NUR ---
clinicals faxed to intake
--- NOTE | 2022-10-15 10:07 | NUR ---
CALLED [phone]
--- NOTE | 2022-10-15 10:10 | NUR ---
Marine Pipefitter Consult SW recieved a consult request for voluntary admission. Pt. is a 42 year old non female. Sw met with Pt. at bedside. Pt. was well groomed, alert and oriented x4, had a depressed mood and flat affect. Pt. confirmed demographic information (Address: [address] [place] [address], ) and person of contact information (Mother Delma Avila who lives in [place], [place] ). Per pt. report, she lives with her roommate. Pt. states she is amulatory and and independient with ADL's. Pt. stated she is not recieving financial assistance. Pt. stated she is depressed and reported ahx of depression, anxiety, and bipolar disorders. Pt stated she is taking Effexor, Lexuda, and Xanax. Pt. stated the medications are not helping and wanted voluntary placement at [facility] to get medications adjusted. Pt. denied hallucinations. SW assessed for suicidal ideation and homicidal ideation in which pt. denied plan, means, or intent. DC Plan: When asked about pt.'s plan after discharge, pt. stated that she will be returning home. Clinicals were faxed to [facility] by ER staff and pending intake. TRAV offered pt. mental health resources in which pt. accepted. -------- Counseling--Outpatient [facility] [address] [place] [address] [place] [address] (Specializes in in-depth psychotherapy for emotional distress: anxiety, depression, interpersonal conflicts, life transitions, childhood abuse) [facility] [address] [place] [address] (Assist with solving problem marital difficulties, separation & divorce, aging parents, & grief, chronic & terminal illness) [facility] [address] [place] [address] (Deal with loss & grief, anxiety, marital difficulties) [facility] [address] [place] [address] (Provide in-home mental services to people who are incapable of leaving their homes) [facility] [address], [place] [id number] [facility] [address] [place] [address] PSYCHIATRIC OUTPATIENT SERVICES [facility] Partial Hospitalization and Intensive Outpatient Program (Managed Care and [place] Only) [address] [facility] [address]; [phone] [facility] Partial Hospitalization and Outpatient Program [address] [place] [address]; [phone] [facility] Mental Health [id number] [place], [place] [phone] [facility] Partial Hospitalization and Outpatient [address] [place], [place] ; [phone] ;[phone] [facility] [address], [place] [address] Mental Health Services [facility] [address] [place] [address] Services: Outpatient therapy for children, teens, young adults, adults, older adults, and families; Psychiatric services, medication support [place] [facility] and Hotline Telephone Numbers: 24-Hour service unless stated [place] Mental Health/Crisis Line........[phone] Suicide Prevention Center (24 Hours).......[phone] Suicide Prevention Crisis Center.......[phone] (24 Hours) Alcoholics Anonymous (24 Hours)..........[phone] National Crisis Hotlines: Alcohol and Drug Helpline - Provides referrals to local facilities where adolescents and adults can seek help. Brief intervention. ANGELLA Helpline [facility] [place] [facility] 1-747-532-ANGELLA National Youth Crisis Hotline [place] [facility] Provides free information on specific disorders, referral directory to mental health providers, national directory of local mental health associations (M-F, 9-5 EST) National [place] of Mental Health Information Line: Provide sinformation and literature on mental illness by disorder-for professionals and general public.
--- NOTE | 2022-10-15 10:27 | NUR ---
PT ACCEPTED AT [facility]. ACCEPTING : DR BYERS NUMBER FOR REPORT : [phone] EXY [phone] SO TO ARRANGE TRANSPORT. WILL TAKE PATIENT AT 1200
--- NOTE | 2022-10-15 10:38 | NUR ---
[facility] CALLED TRANSPORT ASKED FOR ETA OF 1200
--- NOTE | 2022-10-15 10:41 | NUR ---
report given to nathaniel hay to continue care.
[2022-10-15 12:50] VITALS: BP 110/65
--- NOTE | 2022-10-15 12:50 | NUR ---
patient picked up by private ambulance going to [facility] in no distress.
== END 2022-10-15 12:50 ==
LOC: ER 17:24
DX: F32.A Depression, unspecified (principal); U07.1 COVID-19; F41.9 Anxiety disorder, unspecified; Z79.899 Other long term (current) drug therapy
CPT/HCPCS: 99283; 85025; 80048; 80076; 84703; 81003; 36415; 87426; 80143; 80320; 80307; C9803; G0480

== ENCOUNTER 2022-10-28 14:32 | Emergency (ER) | payer OTHER ==
[~2022-10-28] VITALS: Ht 170.2 cm; Wt 59.0 kg
[2022-10-28 14:50] VITALS: BP 114/89
--- NOTE | 2022-10-28 14:50 | NUR ---
PT SELF PRESENTS TO ED C/O FEELING DEPREESED FOR COUPLE OF DAYS NOW. REQUESTING MEDICAL CLEARANCE TO GO TO [facility] FOR VOLUNTARY PSYCHIATRIC ADMISSION. DENIES SI/HI. STABLE VITALS. AWAITING MD GOMEZ.
--- NOTE | 2022-10-28 15:14 | NUR ---
DR GREEN AT BEDSIDE FOR EVAL.
--- NOTE | 2022-10-28 15:40 | NUR ---
HOME SUPPORT WORKER AT BEDSIDE FOR BLOOD DRAW.
--- NOTE | 2022-10-28 15:58 | NUR ---
[facility] AWAITING CLINICALS AFTER BEING CLEARED
[2022-10-28 16:08] LABS: BASOPHILS % (AUTO) 0.4 % (0.0-2.0); EOSINOPHILS % (AUTO) 0.1 % (0.0-6.0); HEMATOCRIT 38 % (33-45); HEMOGLOBIN 12.6 g/dL (11.5-14.8); LYMPHOCYTES # (AUTO) 1.7 K/uL (0.8-4.8); LYMPHOCYTES % (AUTO) 24.3 % (20.0-44.0); MEAN CORPUSCULAR HGB CONC 33 g/dl (31.0-36.0); MEAN CORPUSCULAR VOLUME 96 fL (82-100); MONOCYTES # (AUTO) 0.6 K/uL (0.1-1.30); MONOCYTES % (AUTO) 8.4 % (2.0-12.0); NEUTROPHILS # (AUTO) 4.6 K/uL (1.8-8.9); NEUTROPHILS % (AUTO) 66.8 % (43.0-81.0); PLATELET COUNT (AUTO) 354 K/uL (150-450); RED BLOOD CELL COUNT(AUTO) 3.93 MIL/uL (4.0-5.2); WHITE BLOOD COUNT (AUTO) 6.8 K/uL (4.3-11.0)
[2022-10-28 16:26] LABS: ALANINE AMINOTRANSFERASE 14 U/L (12-78); ALBUMIN 3.7 g/dL (3.4-5.0); ALCOHOL, BLOOD < 3 mg/dL (0-0); ALKALINE PHOSPHATASE 65 U/L (46-116); ASPARTATE AMINOTRANSFERASE 22 U/L (15-37); BILIRUBIN,DIRECT 0.2 mg/dL (0.0-0.2); BILIRUBIN,TOTAL 0.5 mg/dL (0.2-1.0); CALCIUM, SERUM 8.2 mg/dL (8.5-10.1); CARBON DIOXIDE 25 mmol/L (21-32); CHLORIDE 104 mmol/L (98-107); CREATININE 0.7 mg/dL (0.6-1.3); GLUCOSE 81 mg/dL (74-106); POTASSIUM 3.6 mmol/L (3.5-5.1); SODIUM SERUM 135 mmol/L (136-145); TOTAL PROTEIN, SERUM 7.2 g/dL (6.4-8.2); UREA NITROGEN, BLOOD 9 mg/dL (7-18)
--- NOTE | 2022-10-28 16:30 | NUR ---
URINE SAMPLE COLLECTED AND SENT TO LAB
[2022-10-28 16:31] LABS: ACETAMINOPHEN 0 ug/ml (10-30)
[2022-10-28 17:53] LABS: BILIRUBIN,URINE 1+ (NEGATIVE); COLOR,URINE YELLOW (YELLOW); LEUKOCYTE ESTERASE ,URINE NEGATIVE (NEGATIVE); NITRITE, URINE NEGATIVE (NEGATIVE); PROTEIN,URINE NEGATIVE (NEGATIVE); UGLUCOSE NEGATIVE (NEGATIVE)
[2022-10-28 18:36] LABS: BACTERIA,URINE Rare /HPF (None Seen); WBC,URINE 0-2 /HPF (0-3); YEAST,URINE Few /HPF (None Seen)
[2022-10-28 18:37] LABS: SQUAMOUS EPITHELIAL CELL,UR Moderate /HPF (None Seen)
--- NOTE | 2022-10-28 18:56 | NUR ---
CALLED [facility] FOR UPDATE. CLINICALS HAVE BEEN RECEIVED, AWAITING FEEDBACK FROM HOUSE SUP.
--- NOTE | 2022-10-28 22:30 | NUR ---
ACCEPTED [facility] UNDER MD KHALIL REPORT [phone]
--- NOTE | 2022-10-28 22:34 | NUR ---
[facility] ETA 30MIN - 1 HR
--- NOTE | 2022-10-28 22:41 | NUR ---
REPORT GIVEN TO NURSE TODD
--- NOTE | 2022-10-28 23:05 | NUR ---
REPORT GIVEN TO EMS AT BEDSIDE
== END 2022-10-28 23:35 ==
LOC: ER 14:32
DX: F32.A Depression, unspecified (principal); Z20.822 Contact with and (suspected) exposure to COVID-19; Z79.899 Other long term (current) drug therapy; F41.9 Anxiety disorder, unspecified; R45.851 Suicidal ideations
CPT/HCPCS: 99284; 85025; 80048; 80076; 84703; 81001; 36415; 87426; 80143; 80320; 80307; C9803; G0480

== ENCOUNTER 2022-11-13 17:50 | Emergency (ER) | payer OTHER ==
[~2022-11-13] VITALS: Ht 170.2 cm; Wt 61.7 kg
--- NOTE | 2022-11-13 18:48 | NUR ---
TO ER BED 1 AWAITING MD GOMEZ
--- NOTE | 2022-11-13 19:20 | NUR ---
PATIENT IS AAOX4. ABLE TO MAKE NEEDS KNOWN. SITUATED CALMLY IN BED. VITALS CHECKED.
--- NOTE | 2022-11-13 19:20 | NUR ---
REPORT RECEIVED FROM ASHIA RIVERA.
--- NOTE | 2022-11-13 19:30 | NUR ---
CERAMIC MOLD DESIGNER AT BEDSIDE
[2022-11-13 19:44] LABS: BILIRUBIN,URINE NEGATIVE (NEGATIVE); COLOR,URINE YELLOW (YELLOW); LEUKOCYTE ESTERASE ,URINE NEGATIVE (NEGATIVE); NITRITE, URINE NEGATIVE (NEGATIVE); PROTEIN,URINE NEGATIVE (NEGATIVE); UGLUCOSE NEGATIVE (NEGATIVE); UROBILINOGEN,URINE 0.2 EU/dL (0.2)
[2022-11-13 19:54] LABS: BASOPHILS % (AUTO) 0.7 % (0.0-2.0); HEMATOCRIT 40 % (33-45); HEMOGLOBIN 13.1 g/dL (11.5-14.8); LYMPHOCYTES # (AUTO) 2.5 K/uL (0.8-4.8); LYMPHOCYTES % (AUTO) 38.8 % (20.0-44.0); MEAN CORPUSCULAR HGB CONC 33 g/dl (31.0-36.0); MEAN CORPUSCULAR VOLUME 97 fL (82-100); MONOCYTES # (AUTO) 0.6 K/uL (0.1-1.30); MONOCYTES % (AUTO) 8.9 % (2.0-12.0); NEUTROPHILS # (AUTO) 3.2 K/uL (1.8-8.9); NEUTROPHILS % (AUTO) 50.6 % (43.0-81.0); PLATELET COUNT (AUTO) 337 K/uL (150-450); RED BLOOD CELL COUNT(AUTO) 4.09 MIL/uL (4.0-5.2); WHITE BLOOD COUNT (AUTO) 6.4 K/uL (4.3-11.0)
[2022-11-13 20:18] LABS: CALCIUM, SERUM 9.1 mg/dL (8.5-10.1); CARBON DIOXIDE 24 mmol/L (21-32); CHLORIDE 102 mmol/L (98-107); CREATININE 0.8 mg/dL (0.6-1.3); GLUCOSE 92 mg/dL (74-106); POTASSIUM 3.8 mmol/L (3.5-5.1); SODIUM SERUM 137 mmol/L (136-145); UREA NITROGEN, BLOOD 7 mg/dL (7-18)
--- NOTE | 2022-11-13 21:24 | NUR ---
COVID SWAB DONE AND SENT TO LAB
[2022-11-13 21:40] LABS: ALANINE AMINOTRANSFERASE 12 U/L (12-78); ALBUMIN 3.9 g/dL (3.4-5.0); ALCOHOL, BLOOD < 3 mg/dL (0-0); ALKALINE PHOSPHATASE 69 U/L (46-116); ASPARTATE AMINOTRANSFERASE 17 U/L (15-37); BILIRUBIN,DIRECT 0.1 mg/dL (0.0-0.2); BILIRUBIN,TOTAL 0.3 mg/dL (0.2-1.0); TOTAL PROTEIN, SERUM 7.4 g/dL (6.4-8.2)
--- NOTE | 2022-11-13 23:42 | NUR ---
PT ACCEPTED TO [facility] UNDER CARE OF DR. TORRE CALL FOR REPORT [phone] UNIT
--- NOTE | 2022-11-13 23:50 | NUR ---
LONNIE MEMBRENO FOR BLS GOING TO [facility] PER ANA MARÍA ETA - 20 MIN
[2022-11-14] VITALS: BP 119/70
--- NOTE | 2022-11-14 00:09 | NUR ---
EMS AT BEDSIDE
--- NOTE | 2022-11-14 00:09 | NUR ---
REPORT GIVEN TO JANICE BAGLEY
== END 2022-11-14 00:30 ==
LOC: ER 17:53
DX: F32.A Depression, unspecified (principal); F41.9 Anxiety disorder, unspecified; Z20.822 Contact with and (suspected) exposure to COVID-19; Z79.899 Other long term (current) drug therapy
CPT/HCPCS: 99283; 85025; 80048; 80076; 84703; 81003; 36415; 87426; 80143; 80320; 80307; C9803; G0480

== ENCOUNTER 2023-10-16 17:31 | Emergency (ER) | payer OTHER ==
[~2023-10-16] VITALS: Ht 172.7 cm; Wt 66.2 kg
[2023-10-16 22:58] LABS: BASOPHILS % (AUTO) 0.5 % (0.0-2.0); EOSINOPHILS % (AUTO) 0.2 % (0.0-6.0); HEMATOCRIT 32 % (33-45); HEMOGLOBIN 10.5 g/dL (11.5-14.8); INR 0.99 (0.91-1.10); LYMPHOCYTES # (AUTO) 1.1 K/uL (0.8-4.8); LYMPHOCYTES % (AUTO) 18.5 % (20.0-44.0); MEAN CORPUSCULAR HEMOGLOBIN 29 PG (26.0-33.0); MEAN CORPUSCULAR HGB CONC 33 g/dl (31.0-36.0); MEAN CORPUSCULAR VOLUME 88 fL (82-100); MONOCYTES # (AUTO) 0.4 K/uL (0.1-1.30); MONOCYTES % (AUTO) 7.2 % (2.0-12.0); NEUTROPHILS # (AUTO) 4.4 K/uL (1.8-8.9); NEUTROPHILS % (AUTO) 73.6 % (43.0-81.0); PARTIAL THROMBOPLASTIN TIME 28.9 SEC (24.3-34.3); PLATELET COUNT (AUTO) 320 K/uL (150-450); PROTHROMBIN TIME 10.5 SECS (9.2-11.1); RED BLOOD CELL COUNT(AUTO) 3.62 MIL/uL (4.0-5.2); RED CELL DISTRIBUTION WIDTH 16.9 % (11.5-15.0)
[2023-10-16 23:17] LABS: CALCIUM, SERUM 8.9 mg/dL (8.5-10.1); CREATININE 0.7 mg/dL (0.6-1.3); POTASSIUM 4.6 mmol/L (3.5-5.1)
[2023-10-16 23:21] LABS: ALBUMIN 3.7 g/dL (3.4-5.0); BILIRUBIN,DIRECT 0.1 mg/dL (0.0-0.2); BILIRUBIN,TOTAL 0.2 mg/dL (0.2-1.0); TOTAL PROTEIN, SERUM 7.4 g/dL (6.4-8.2)
[2023-10-16 23:56] LABS: APPEARANCE,URINE CLEAR (CLEAR); BILIRUBIN,URINE NEGATIVE (NEGATIVE); BLOOD, URINE TRACE-INTA Ery/uL (NEGATIVE); COLOR,URINE YELLOW (YELLOW); KETONES,URINE NEGATIVE (NEGATIVE); LEUKOCYTE ESTERASE ,URINE NEGATIVE (NEGATIVE); NITRITE, URINE NEGATIVE (NEGATIVE); PROTEIN,URINE NEGATIVE (NEGATIVE); UGLUCOSE NEGATIVE (NEGATIVE); UROBILINOGEN,URINE 0.2 EU/dL (0.2)
[2023-10-17 00:07] LABS: AMPHETAMINE, URINE NEGATIVE (NEGATIVE); BARBITURATE, URINE NEGATIVE (NEGATIVE); BENZODIAZEPINE, URINE NEGATIVE (NEGATIVE); CANNABINOID, URINE NEGATIVE (NEGATIVE); COCCAINE, URINE NEGATIVE (NEGATIVE); OPIATE, URINE NEGATIVE (NEGATIVE); PHENCYCLIDINE SCREEN,URINE NEGATIVE (NEGATIVE)
[2023-10-17 00:41] VITALS: BP 132/85; TEMP 98.2; O2SAT 100
== END 2023-10-17 00:41 | disposition home or self-care (01) ==
LOC: ER 17:31
DX: R10.9 Unspecified abdominal pain (principal); F32.A Depression, unspecified; F41.9 Anxiety disorder, unspecified; Z79.899 Other long term (current) drug therapy; Z60.2 Problems related to living alone
CPT/HCPCS: 36415; 80048-TC; 80076-TC; 82962-TC; 83690-TC; 85025-TC; 85730-TC

== ENCOUNTER 2024-04-13 09:23 | Emergency (ER) | payer MEDICAID, OTHER ==
[~2024-04-13] VITALS: Ht 172.7 cm; Wt 66.2 kg
[2024-04-13 09:56] LABS: BASOPHILS # (AUTO) 0.1 K/uL (0.0-0.2); BASOPHILS % (AUTO) 0.7 % (0.0-2.0); EOSINOPHILS % (AUTO) 0.5 % (0.0-6.0); HEMATOCRIT 31 % (33-45); HEMOGLOBIN 9.9 g/dL (11.5-14.8); LYMPHOCYTES # (AUTO) 1.6 K/uL (0.8-4.8); LYMPHOCYTES % (AUTO) 16.5 % (20.0-44.0); MEAN CORPUSCULAR HEMOGLOBIN 27 PG (26.0-33.0); MEAN CORPUSCULAR HGB CONC 32 g/dl (31.0-36.0); MEAN CORPUSCULAR VOLUME 85 fL (82-100); MONOCYTES # (AUTO) 0.7 K/uL (0.1-1.30); MONOCYTES % (AUTO) 6.8 % (2.0-12.0); NEUTROPHILS # (AUTO) 7.4 K/uL (1.8-8.9); NEUTROPHILS % (AUTO) 75.5 % (43.0-81.0); PLATELET COUNT (AUTO) 451 K/uL (150-450); RED BLOOD CELL COUNT(AUTO) 3.68 MIL/uL (4.0-5.2); RED CELL DISTRIBUTION WIDTH 17.4 % (11.5-15.0); WHITE BLOOD COUNT (AUTO) 9.8 K/uL (4.3-11.0)
[2024-04-13 10:05] LABS: CALCIUM, SERUM 8.7 mg/dL (8.5-10.1); CARBON DIOXIDE 28 mmol/L (21-32); CHLORIDE 104 mmol/L (98-107); CREATININE 0.6 mg/dL (0.6-1.3); GLUCOSE 114 mg/dL (74-106); POTASSIUM 3.9 mmol/L (3.5-5.1); SODIUM SERUM 138 mmol/L (136-145); UREA NITROGEN, BLOOD 9 mg/dL (7-18)
[2024-04-13] MEDS ORDERED: IBUP-1955 PO (11:44)
[2024-04-13] MEDS ORDERED: LORAZEPAM 1 MG TABLET ONE (11:53)
[2024-04-13] MEDS: LORAZEPAM 1 MG TABLET PO ONE (11:56)
[2024-04-13 12:25] LABS: PREGNANCY TEST URINE QUAL NEGATIVE (NEGATIVE)
[2024-04-13 12:33] LABS: AMPHETAMINE, URINE NEGATIVE (NEGATIVE); BARBITURATE, URINE NEGATIVE (NEGATIVE); BENZODIAZEPINE, URINE NEGATIVE (NEGATIVE); CANNABINOID, URINE NEGATIVE (NEGATIVE); COCCAINE, URINE NEGATIVE (NEGATIVE); OPIATE, URINE NEGATIVE (NEGATIVE); PHENCYCLIDINE SCREEN,URINE NEGATIVE (NEGATIVE)
[2024-04-13 14:58] VITALS: BP 140/88; TEMP 98.5; O2SAT 99
== END 2024-04-13 14:10 ==
LOC: ER 09:35
DX: J06.9 Acute upper respiratory infection, unspecified (principal); R07.89 Other chest pain; F41.9 Anxiety disorder, unspecified; F32.A Depression, unspecified; Z60.2 Problems related to living alone; Z20.822 Contact with and (suspected) exposure to COVID-19
CPT/HCPCS: 36415; 71045-TC; 80048-TC; 84484-TC; 84703-TC; 85025-TC